=== PATIENT | female | born 1950 | race Caucasian/White ===

== ENCOUNTER → 2018-07-06 | Outpatient (CLI) | payer MEDICARE ==
--- NOTE | 2018-07-06 16:01 | KCIC ---
Bilateral digital screening mammograms with 3D Tomosynthesis : Reason for examination: Routine screening. Comparison is made to previous studies dated 07/04/2017 and 03/22/2015. Bilateral mammograms in CC and oblique projections were obtained with 2-D imaging and 3-D tomosynthesis imaging on a Siemens Inspiration unit and reviewed on the workstation. Interpretation was made with the benefit of CAD. The skin and nipples show no abnormalities. No abnormal axillary lymph nodes are seen. The breast parenchyma shows scattered fibroglandular density. (Breast density: Category B.) There are no dominant masses, suspicious calcifications or architectural distortions. Some benign calcifications are present. Impression: No evidence of malignancy. Recommend routine screening. BI-RADS category 2: Benign "Our facility is accredited by the [employer] Mammography [employer]." This patient's information has been entered into a reminder system for the patient to be notified with the results of her examination and a target date for the next mammogram. Electronically signed by: Margo Yu MD (07/06/2018 3:57 PM) [id number]
== END | disposition home or self-care (01) ==
LOC: KCIC MAMMO 11:59 → MERGE 11:59
PROVIDERS: ATTEND Family Medicine
DX: Z12.31 Encounter for screening mammogram for malignant neoplasm of breast (principal)
CPT/HCPCS: 77063; 77067

== ENCOUNTER → 2020-04-14 | Outpatient (CLI) | payer MEDICARE ==
--- NOTE | 2020-04-14 13:01 | KCIC ---
Bilateral digital screening mammograms with 3-D tomosynthesis: Reason for examination: Routine screening. Comparison is made to previous studies dated back to 03/22/2015. Bilateral mammograms in CC and oblique projections were obtained with 2-D imaging and 3-D tomosynthesis imaging on a Siemens Inspiration unit and reviewed on the workstation. Interpretation was made with the benefit of CAD. The skin and nipples show no abnormalities. No abnormal axillary lymph nodes are seen. The breast parenchyma is predominantly fatty. (Breast density: Category A.) There are no dominant masses, suspicious calcifications or architectural distortion. Scattered punctate benign-appearing calcifications are present bilaterally. Impression: No evidence of malignancy. Recommend routine screening. BI-RAD Category 2: Benign. "Our facility is accredited by the [employer] Mammography [employer]." This patient's information has been entered into a reminder system for the patient to be notified with the results of her examination and a target date for the next mammogram. Electronically signed by: Margo Yu MD (04/14/2020 12:59 PM) [id number]
== END | disposition home or self-care (01) ==
LOC: KCIC MAMMO 10:20
PROVIDERS: ATTEND Family Medicine
DX: Z12.31 Encounter for screening mammogram for malignant neoplasm of breast (principal); N64.89 Other specified disorders of breast
CPT/HCPCS: 77063; 77067

== ENCOUNTER → 2021-04-16 | Outpatient (CLI) | payer MEDICARE ==
[~2021-04-16] MED LIST: EMPA10TA PO; GLIP5TAB10 PO; LISI10TA16 PO
--- NOTE | 2021-04-16 12:35 | KCIC ---
EXAMINATION: Magnetic resonance imaging (MRI) of the cervical spine without contrast 04/16/2021 9:30 A M HISTORY: Cervical radiculopathy TECHNIQUE: Multiplanar multi-weighted MRI of the cervical spine was performed without intravenous con trast using the standard cervical spine protocol. Contrast information: None administered COMPARISON: None available. FINDINGS: There is 2 mm retrolisthesis of C2 on C3. Vertebral body heights are maintained. Marrow signal intens ity is normal in all sequences. Mild disc height loss at C5-C6 and C6-C7 with disc desiccation. Poste rior fossa is normal in appearance. There are T2/FLAIR signal hyperintense foci in the limited visual ized occipital periventricular white matter with areas of confluence most suggestive of moderate manager construction eneida small vessel ischemic changes. There is expansion of the cord at the C6 vertebral level measuring up to 9 mm in thickness with T2 signal hyperintensity extending from the superior endplate of C5 to inferior endplate of C6. Cord signal alteration is asymmetric to the right hemicord although crosses the midline. No paravertebral soft tissue abnormality is identified. Visualized portions of the lungs appear clear. C2-C3: Mild disc bulge. No facet or uncovertebral joint disease. No neuroforaminal or spinal canal st enosis. C3-C4: Mild disc bulge. No significant facet arthropathy. Uncovertebral joint disease. No neuroforami nal or spinal canal stenosis. C4-C5: Posterior disc osteophyte complex with central disc protrusion. No significant facet or uncove rtebral joint disease. No neuroforaminal or spinal canal stenosis. C5-C6: There is a mild disc bulge asymmetric to the left. Mild left facet arthropathy. Mild left neur oforaminal stenosis. Moderate left neuroforaminal stenosis. No significant spinal canal stenosis. C6-C7: There is a posterior disc osteophyte complex. Mild facet and uncovertebral joint disease. Mild to moderate bilateral neuroforaminal stenosis. Mild spinal canal stenosis without deformity of the c ord. C7-T1: Disc is normal in configuration. No neuroforaminal or spinal canal stenosis. IMPRESSION: There is T2 signal hyperintensity involving the cervical cord centered at the C6 vertebral level exte nding from the superior endplate of C5 to inferior endplate of C6 asymmetric to the right hemicord. D ifferential considerations would include demyelinating plaque as may be associated with multiple scle rosis or neuromyelitis optica or ADEM versus transverse myelitis. Underlying cord neoplasm such as an astrocytoma remains a differential consideration. Further evaluation with MRI cervical spine without contrast could be of benefit. Mild cervical spondylosis as detailed above. Electronically signed by: Maryam Laura MD (04/16/2021 12:33 PM) [id number]
== END ==
LOC: KCIC MRI 09:04
PROVIDERS: ATTEND Family Medicine
DX: M47.22 Other spondylosis with radiculopathy, cervical region (principal); M50.122 Cervical disc disorder at C5-C6 level with radiculopathy; M50.11 Cervical disc disorder with radiculopathy, high cervical region; M43.12 Spondylolisthesis, cervical region; M25.78 Osteophyte, vertebrae
CPT/HCPCS: 72141

== ENCOUNTER → 2021-05-08 | Outpatient (CLI) | payer MEDICARE ==
--- NOTE | 2021-05-08 10:55 | KCIC ---
Bilateral digital screening mammograms with 3-D tomosynthesis: Reason for examination: Routine screening. Comparison is made to previous study dated 04/14/2020. Bilateral mammograms in CC and oblique projections were obtained with 2-D imaging and 3-D tomosynthes is imaging on a Siemens Inspiration unit and reviewed on the workstation. Interpretation was made wit h the benefit of CAD. The skin and nipples show no abnormalities. No abnormal axillary lymph nodes are seen. The breast par enchyma shows scattered fatty and fibroglandular density. (Breast density: Category B.) There are no dominant masses, suspicious calcifications or architectural distortion. Benign calcifications are pre sent. Impression: No evidence of malignancy. Recommend routine screening. BI-RAD Category 2: Benign. "Our facility is accredited by the [employer] Mammography [employer]." This patient's information has been entered into a reminder system for the patient to be notified wit h the results of her examination and a target date for the next mammogram. Electronically signed by: Margo Yu MD (05/08/2021 10:53 AM) [email or web address]
== END ==
LOC: KCIC MAMMO 09:40
PROVIDERS: ATTEND Family Medicine
DX: Z12.31 Encounter for screening mammogram for malignant neoplasm of breast (principal)
CPT/HCPCS: 77063; 77067